=== PATIENT | female | born 2000 | race Two or more races ===

== ENCOUNTER 2021-06-21 14:08 | Emergency (ER) | payer BC, MEDICAID ==
[~2021-06-21] VITALS: Ht 157.5 cm; Wt 62.0 kg
[2021-06-21] MEDS ORDERED: FAMOTIDINE 20 MG/2 ML IVPush ONE (15:00)
[2021-06-21] MEDS ORDERED: ONDANSETRON 2MG/ML, 2ML IVPush ONE (15:00)
[2021-06-21] MEDS ORDERED: MAALOX/HYOSCYAMINE/LIDOCAINE 45 ML BTL PO ONE (15:00)
[2021-06-21] MEDS ORDERED: SODIUM CHLORIDE 0.9% 1,000ML IVBOLUS ONE (15:00)
[2021-06-21 15:10] LABS: BASOPHILS % (AUTO) 0 % (0-1); EOSINOPHILS % (AUTO) 2 % (1-7); LYMPHOCYTES % (AUTO) 17 % (22-44); MEAN CORPUSCULAR HEMOGLOBIN 27.6 pg (27.0-34.8); MEAN CORPUSCULAR HGB CONC 34.6 g/dL (32.4-35.8); MEAN PLATELET VOLUME 7.5 fL (7.4-10.4); MONOCYTES % (AUTO) 5 % (2-9); NEUTROPHILS % (AUTO) 76 % (42-75); PLATELET COUNT 313 x10^3/uL (130-400); RED BLOOD COUNT 4.91 x10^6/uL (3.82-5.3)
[2021-06-21 15:23] LABS: ALANINE AMINOTRANSFERASE 18 U/L (12-78); ALBUMIN 4.1 g/dL (3.4-5.0); ANION GAP 9 mmol/L (5-15); CALCIUM 9.2 mg/dL (8.5-10.1); CHLORIDE 107 mmol/L (98-107); CREATININE 0.57 mg/dL (0.55-1.02)
[2021-06-21 15:28] LABS: ALKALINE PHOSPHATASE 61 U/L (45-117); BILIRUBIN,TOTAL 0.4 mg/dL (0.2-1.0); TOTAL PROTEIN 7.8 g/dL (6.4-8.2)
[2021-06-21] MEDS ORDERED: ONDANSETRON 2MG/ML, 2ML ONE (15:34)
[2021-06-21] MEDS ORDERED: FAMOTIDINE 20 MG/2 ML ONE (15:35)
[2021-06-21] MEDS ORDERED: MAALOX/HYOSCYAMINE/LIDOCAINE 45 ML BTL ONE (15:35)
[2021-06-21 16:30] LABS: MICROSCOPIC INDICATED
[2021-06-21 17:33] VITALS: BP 102/62
--- NOTE | 2021-06-21 17:34 | NUR ---
PT REC'VD DISHARCGE INSTRUCTIONS AND EDUCATION. PT HAD NO FURTHER QUESTIONS.
--- NOTE | 2021-06-21 17:49 | NUR ---
PT AMBULATED TO WI AREA. STEADY GAIT.
== END 2021-06-21 17:52 | disposition home or self-care (01) ==
LOC: ED 14:39
DX: K52.9 Noninfective gastroenteritis and colitis, unspecified (principal); R11.2 Nausea with vomiting, unspecified
CPT/HCPCS: 36415; 80053; 81001; 83690; 84703; 85025; 87086; 96361; 96374; 96375; 99284; J2405; J7030